=== PATIENT | female | born 1965 | race American Indian/Alaskan Native ===

== ENCOUNTER 2017-07-09 06:44 | Day surgery (SDC) | payer OTHER ==
[2017-07-09] MEDS ORDERED: Lactated Ringers 1,000 ML IV SCH (06:45)
--- NOTE | 2017-07-09 07:58 | PREOP ---
ADMISSION DATE: 07/09/2017 CHIEF COMPLAINT: Need for colon cancer screening. HISTORY OF PRESENT ILLNESS: This is a 52-year-old female referred for a followup colonoscopy. Last one was performed five years ago and was negative. She has a family history of colon cancer with her mother being diagnosed with the disease before the age of 55. She currently reports no complaints. MEDICATIONS: 1. Naprosyn 1 tablet 500 mg as needed q.12. 2. Fioricet 5/325/40 mg tablets one on the onset of severe headaches, may repeat every 6 hours as needed. 3. Flexeril 1 tablet every 6 hours as needed for muscle spasm. 4. Hydrochlorothiazide 25 mg half a tablet by mouth one time a day. 5. Zocor 20 mg one tablet by mouth one time a day. 6. Micardis 40 mg 1 time a day. ALLERGIES: She has no known drug allergies. PAST MEDICAL HISTORY: Significant for breast mass, elevated cholesterol, history of headache, and hypertension. PAST SURGICAL HISTORY: Significant for breast lumpectomy with needle localization, cholecystectomy, colonoscopy, shoulder surgery, and tubal ligation. FAMILY HISTORY: Significant for diabetes, thyroid disease, colorectal cancer, heart disease and hypertension. The patient is . She smokes every day. Has an occasional drink. REVIEW OF SYSTEMS: CONSTITUTIONAL: Negative. HEENT: Negative. HEART: Negative. LUNGS: Negative. GASTROINTESTINAL: Negative. PHYSICAL EXAMINATION: VITAL SIGNS: Reviewed. She is afebrile and vital signs are stable. HEENT: Grossly within normal limits. LUNGS: Clear to auscultation. HEART: Had a regular rate and rhythm. ABDOMEN: Soft, nontender. ASSESSMENT: Family history of colon cancer below the age of 55. Need for followup colonoscopy. PLAN: Colonoscope. Procedure and risks explained to the patient to include bleeding, perforation, and infection. The patient expresses understanding and asked us to proceed. /[id number] /MODL
[2017-07-09] MEDS ORDERED: Midazolam 1 MG/ML 2 ML SDV IV ONE (08:00)
[2017-07-09] MEDS ORDERED: Propofol 200 MG/20 ML SDV IV ONE (08:00)
--- NOTE | 2017-07-09 08:24 | PCM.OPNOTE ---
- General Post-Op/Procedure Note Date of Surgery/Procedure: 07/09/17 Operative Procedure(s): c scope with bx Findings: sigmoid colon polyp Pre Op Diagnosis: family hx of colon cancer mother age < 55 Post-Op Diagnosis: sigmoid colon polyp Anesthesia Technique: MAC Primary Surgeon: Polo Ernst Anesthesia Provider: Liv Verduzco Pathology: sigmoid colon polyp Complications: None Condition: Good Free Text/Narrative:: see dictation
[2017-07-09 09:20] VITALS: BP 116/78
--- NOTE | 2017-07-09 09:42 | OR ---
DATE OF OPERATION: 07/09/2017 SURGEON: Polo Ernst MD PROCEDURE PERFORMED: Colonoscopy with cold forceps biopsy. PREOPERATIVE DIAGNOSIS: Family history of colon cancer in a first-degree relative less than the age of 55. POSTOPERATIVE DIAGNOSIS: Sigmoid polyp. INDICATIONS FOR PROCEDURE: This is a 52-year-old female who presents for a followup colonoscopy. Last one was five years ago and was negative. She was offered and accepted the same. DESCRIPTION OF OPERATION: After an excellent IV sedation was administered, digital rectal exam was performed. No marked abnormality was noted. The flexible colonoscope was inserted and advanced to the cecum without difficulty. The prep was excellent. The following findings were noted. Ascending colon, unremarkable. Transverse colon, unremarkable. Descending colon, unremarkable. Sigmoid, questionable polypoid lesion. Biopsied with cold biopsy forceps and sent for permanent. Rectum was unremarkable. Colon was deflated. Scope was removed. The patient tolerated the procedure well, taken to recovery room in good condition. Results by letter and followup scope on the basis of these pathologic findings. /[id number] /MODL
== END 2017-07-09 09:15 | disposition home or self-care (01) ==
LOC: FB.SDS 06:44
PROVIDERS: ATTEND Surgery
DX: Z12.11 Encounter for screening for malignant neoplasm of colon (principal); K63.5 Polyp of colon; I10 Essential (primary) hypertension; E78.00 Pure hypercholesterolemia, unspecified; Z80.0 Family history of malignant neoplasm of digestive organs; Z79.899 Other long term (current) drug therapy
CPT/HCPCS: 45380; 81025; 88305; J2250; J2704; J7120

== ENCOUNTER 2020-02-01 01:44 | Emergency (ER) | payer OTHER ==
[2020-02-01] MEDS ORDERED: Cyclobenzaprine 10 MG Tab PO ONE (02:07)
[2020-02-01] MEDS ORDERED: Ketorolac 60 MG/2 ML SDV IM ONE (02:07)
--- NOTE | 2020-02-01 02:30 | EDM.PDOC ---
ED HPI GENERAL MEDICAL PROBLEM - General Stated Complaint: BACK PAIN Time Seen by Provider: 02/01/20 02:15 Source of Information: Reports: Patient History Limitations: Reports: No Limitations - History of Present Illness INITIAL COMMENTS - FREE TEXT/NARRATIVE: Patient presented to the ED because of 3 day history of rt flank pain. The pain is sharp 9/10, worse with movements. there is no abdominal pain,nausea,vomiting or diarrhea. There is no fever,chills,cough or cold symptoms. right flank Pain Score (Numeric/FACES): 8 - Related Data Allergies Allergy/AdvReac Type Severity Reaction Status Date / Time No Known Allergies Allergy Verified 07/09/17 07:15 Home Meds: Home Meds Acetaminophen/Butalbital/Caff [Fioricet 325-50-40 MG] 1 tab PO Q6H PRN 07/06/17 [History] Cyclobenzaprine [Flexeril] 10 mg PO Q6H PRN 07/06/17 [History] Naproxen [Naprosyn] 500 mg PO Q12HR PRN 07/06/17 [History] Simvastatin [Zocor] 20 mg PO BEDTIME 07/06/17 [History] Telmisartan [Micardis] 40 mg PO DAILY 07/06/17 [History] hydroCHLOROthiazide [Hydrochlorothiazide] 12.5 mg PO DAILY 07/06/17 [History] Past Medical History HEENT History: Reports: None Cardiovascular History: Reports: High Cholesterol, Hypertension Respiratory History: Reports: None Genitourinary History: Reports: None METAL STAMPER History: Reports: None Musculoskeletal History: Reports: Other (See Below) Other Musculoskeletal History: LEFT SHOULDER PAIN Neurological History: Reports: Headaches, Chronic, Migraines Psychiatric History: Reports: Addiction Endocrine/Metabolic History: Reports: None Hematologic History: Reports: None Immunologic History: Reports: None Dermatologic History: Reports: None - Past Surgical History Head Surgeries/Procedures: Reports: None HEENT Surgical History: Reports: None Cardiovascular Surgical History: Reports: None Respiratory Surgical History: Reports: None GI Surgical History: Reports: Cholecystectomy, Colonoscopy Female Surgical History: Reports: Tubal Ligation Endocrine Surgical History: Reports: None Neurological Surgical History: Reports: None Musculoskeletal Surgical History: Reports: Shoulder Surgery Oncologic Surgical History: Reports: Other (See Below) Other Oncologic Surgeries/Procedures: RIGHT BREAST LUMPECTOMY Dermatological Surgical History: Reports: None Social & Family History - Caffeine Use Caffeine Use: Reports: Coffee, Soda ED ROS GENERAL - Review of Systems Review Of Systems: See Below Constitutional: Reports: No Symptoms HEENT: Reports: No Symptoms Respiratory: Reports: No Symptoms Cardiovascular: Reports: No Symptoms Endocrine: Reports: No Symptoms GI/Abdominal: Reports: No Symptoms : Reports: Flank Pain Musculoskeletal: Reports: No Symptoms Skin: Reports: No Symptoms ED EXAM, GI/ABD - Physical Exam Exam: See Below Exam Limited By: No Limitations General Appearance: Alert, No Apparent Distress Ears: Normal External Exam, Normal Canal Nose: Normal Inspection, Normal Mucosa Throat/Mouth: Normal Inspection, Normal Lips, Normal Teeth Head: Atraumatic, Normocephalic Neck: Normal Inspection, Supple, Non-Tender Respiratory/Chest: No Respiratory Distress, Lungs Clear, Normal Breath Sounds Cardiovascular: Normal Peripheral Pulses, Regular Rate, Rhythm, No Edema, No Gallop GI/Abdominal Exam: Normal Bowel Sounds, Soft, Non-Tender, No Organomegaly Back Exam: Muscle Spasm Course - Vital Signs Text/Narrative:: Labs/Abd-pelvis CT result was discussed with patient Toradol 60 mg IM Flexeril 10 mg PO x1 Last Recorded V/S: Last Vital Signs Temp 36.6 C 02/01/20 01:44 Pulse 101 H 02/01/20 01:44 Resp 17 02/01/20 01:44 BP 120/88 02/01/20 01:44 Pulse Ox 99 02/01/20 01:44 - Orders/Labs/Meds Orders: Active Orders 24 hr Category Date Time Status Abdomen wo Cont [CT] Stat Exams 02/01/20 02:05 Taken Labs: Laboratory Tests 02/01/20 02/01/20 02/01/20 Range/Units 02:15 02:15 02:48 WBC 7.5 (4.5-12.0) X10-3/uL RBC 3.85 (3.23-5.20) x10(6)uL Hgb 12.3 (11.5-15.5) g/dL Hct 35.7 (30.0-51.3) % MCV 92.5 (80-96) fL MCH 31.9 (27.7-33.6) pg MCHC 34.5 (32.2-35.4) g/dL RDW 12.0 (11.5-15.5) % Plt Count 449 H (125-369) X10(3)uL MPV 6.3 L (7.4-10.4) fL Neut % (Auto) 71.1 (46-82) % Lymph % (Auto) 22.1 (13-37) % [place] % (Auto) 4.3 (4-12) % Eos % (Auto) 1 (1.0-5.0) % Baso % (Auto) 1 (0-2) % Neut # (Auto) 5.3 (1.6-8.3) # Lymph # (Auto) 1.7 (0.6-5.0) # [place] # (Auto) 0.3 (0.0-1.3) # Eos # (Auto) 0.1 (0.0-0.8) # Baso # (Auto) 0.1 (0.0-0.2) # Sodium 132 L (135-145) mmol/L Potassium 3.6 (3.5-5.3) mmol/L Chloride 96 L (100-110) mmol/L Carbon Dioxide 25 (21-32) mmol/L BUN 9 (7-18) mg/dL Creatinine 0.7 (0.55-1.02) mg/dL Est Cr Clr Drug Dosing TNP Estimated GFR (MDRD) > 60 (>60) BUN/Creatinine Ratio 12.9 (9-20) Glucose 117 H (80-116) mg/dL Calcium 8.6 (8.6-10.2) mg/dL Urine Color Yellow (YELLOW) Urine Appearance Slightly cloudy (CLEAR) Urine pH 5.0 (5.0-6.5) Ur Specific [place] 1.005 L (1.010-1.025) Urine Protein Negative (NEGATIVE) mg/dL Urine Glucose (UA) Normal (NORMAL) mg/dL Urine Ketones Negative (NEGATIVE) mg/dL Urine Occult Blood Trace (NEGATIVE) Urine Nitrite Negative (NEGATIVE) Urine Bilirubin Negative (NEGATIVE) Urine Urobilinogen Normal (NEGATIVE) mg/dL Ur Leukocyte Esterase Large H (NEGATIVE) Urine RBC 5-10 H (0-5) Urine WBC 5-10 H (0-5) Ur Squamous Epith Cells Few H (NS,R,O) Urine Bacteria Few H (NS) Urine Trichomonas Present H (NS) Meds: Medications Discontinued Medications Generic Name Dose Route Start Last Admin Trade Name Tabitha PRN Reason Stop Dose Admin Cyclobenzaprine HCl 10 mg 02/01/20 02:07 02/01/20 02:44 Flexeril PO 02/01/20 02:08 10 mg ONETIME ONE Administration Ketorolac Tromethamine 60 mg 02/01/20 02:07 02/01/20 02:44 Toradol IM 02/01/20 02:08 60 mg ONETIME ONE Administration Departure - Departure Time of Disposition: 04:15 Disposition: Home, Self-Care 01 Condition: Good Clinical Impression: Nephrolithiasis, Pulmonary nodule - Discharge Information Instructions: Pulmonary Nodule, [id number], Kidney Stones, [id number] Referrals: PCP,None [Primary Care Provider] - Additional Instructions: Please read discharge instructions on kidney stones and pulmonary nodules Increase oral fluids Take ibuprofen 800 mg with tylenol 1000 mg every 8 hours as needed for pain Follow up with your doctor with regards to your pulmonary nodule Sepsis Event Note (ED) - Focused Exam Vital Signs: Vital Signs Temp Pulse Resp BP Pulse Ox 02/01/20 01:44 36.6 C 101 H 17 120/88 99 - My Orders Last 24 Hours: My Active Orders 02/01/20 02:05 Abdomen wo Cont [CT] Stat - Assessment/Plan Last 24 Hours: My Active Orders 02/01/20 02:05 Abdomen wo Cont [CT] Stat
[2020-02-01 05:40] VITALS: BP 112/75; PULSE 97
== END 2020-02-01 04:18 | disposition home or self-care (01) ==
LOC: FB.ED 01:44
DX: N20.0 Calculus of kidney (principal); R91.1 Solitary pulmonary nodule; I10 Essential (primary) hypertension; E78.00 Pure hypercholesterolemia, unspecified
CPT/HCPCS: 36415; 74150; 80048; 81001; 85025; 96372; 99284; A9270; J1885; 99283

== ENCOUNTER 2020-02-21 13:31 | Emergency (ER) | payer OTHER ==
[2020-02-21] MEDS ORDERED: Nitroglycerin 0.4 MG Tab.SL SL PRN (13:57)
[2020-02-21] MEDS ORDERED: Aspirin 81 MG Tab.Chew PO ONE (13:57)
[2020-02-21] MEDS ORDERED: Sodium Chloride 0.9% 1,000 ML IV SCH ×2 (14:00→17:30)
[2020-02-21] MEDS ORDERED: Morphine 2 MG/ML SYRINGE IVPUSH ONE ×2 (14:04→15:46)
[2020-02-21] MEDS ORDERED: Morphine 2 MG/ML SYRINGE ONE (14:06)
[2020-02-21 14:13] VITALS: PULSE 120
[2020-02-21] MEDS ORDERED: Alum Hydroxide/Mag Hydroxide 15 ML, Lidocaine 2% 15 ML PO ONE ×2 (14:15)
[2020-02-21 14:21] VITALS: BP 105/70
[2020-02-21] MEDS ORDERED: fentaNYL 100 MCG/2 ML SDV ONE (14:45)
[2020-02-21] MEDS ORDERED: fentaNYL 100 MCG/2 ML SDV IVPUSH ONE ×2 (15:03→15:05)
[2020-02-21] MEDS ORDERED: Sodium Chloride 0.9% 1,000 ML IV ONE (15:42)
--- NOTE | 2020-02-21 17:35 | EDM.PDOC ---
ED HPI GENERAL MEDICAL PROBLEM - General Chief Complaint: Cardiovascular Problem Stated Complaint: CHEST PAIN Time Seen by Provider: 02/21/20 13:40 Source of Information: Reports: Patient History Limitations: Reports: No Limitations - History of Present Illness INITIAL COMMENTS - FREE TEXT/NARRATIVE: pt presents with retrosternal / epigastric pain since 11 am was watching TV when this started in the retrosternum then she went to shower and pain got worse , felt weak and diaphoretic , on arrival in ER it had improved but was still present Smoker Father had AR at 40's in 60's from [place] , had CVA pt has PVD , had stent placed in left leg about one month ago for PVD pt has hyperlipidemia Onset: Today Onset Date: 02/21/20 Duration: Hour(s): (2), Getting Worse Location: Reports: Chest Quality: Reports: Dull Severity: Moderate Improves with: Reports: None Worsens with: Reports: None Context: Reports: Activity (took a shower and chest pain got worse) Associated Symptoms: Reports: Chest Pain, Diaphoresis, Malaise, Weakness. Denies: Shortness of Breath Epigastric Pain Score (Numeric/FACES): 7 Left Groin Pain Score (Numeric/FACES): 9 - Related Data Allergies Allergy/AdvReac Type Severity Reaction Status Date / Time No Known Allergies Allergy Verified 02/21/20 13:49 Home Meds: Home Meds Simvastatin [Zocor] 20 mg PO BEDTIME 07/06/17 [History] Telmisartan [Micardis] 20 mg PO DAILY 07/06/17 [History] hydroCHLOROthiazide [Hydrochlorothiazide] 12.5 mg PO DAILY 07/06/17 [History] Ibuprofen 800 mg PO Q12H PRN 02/21/20 [History] Past Medical History HEENT History: Reports: None Cardiovascular History: Reports: High Cholesterol, Hypertension Respiratory History: Reports: None Genitourinary History: Reports: None ADOPTION MANAGER History: Reports: None Musculoskeletal History: Reports: Other (See Below) Other Musculoskeletal History: LEFT SHOULDER PAIN Neurological History: Reports: Headaches, Chronic, Migraines Psychiatric History: Reports: Addiction Endocrine/Metabolic History: Reports: None Hematologic History: Reports: None Immunologic History: Reports: None Dermatologic History: Reports: None - Past Surgical History Head Surgeries/Procedures: Reports: None HEENT Surgical History: Reports: None Cardiovascular Surgical History: Reports: None Respiratory Surgical History: Reports: None GI Surgical History: Reports: Cholecystectomy, Colonoscopy Female Surgical History: Reports: Tubal Ligation Endocrine Surgical History: Reports: None Neurological Surgical History: Reports: None Musculoskeletal Surgical History: Reports: Shoulder Surgery Oncologic Surgical History: Reports: Other (See Below) Other Oncologic Surgeries/Procedures: RIGHT BREAST LUMPECTOMY Dermatological Surgical History: Reports: None Social & Family History - Tobacco Use Tobacco Use Status *Q: Former Tobacco User Used Tobacco, but Quit: Yes Month/Year Tobacco Last Used: 2019 - Caffeine Use Caffeine Use: Reports: Soda - Recreational Drug Use Recreational Drug Use: No ED ROS GENERAL - Review of Systems Review Of Systems: See Below Constitutional: Reports: Fatigue. Denies: Fever, Chills, Malaise, Weakness HEENT: Reports: No Symptoms Respiratory: Reports: No Symptoms. Denies: Shortness of Breath, Wheezing, Pleuritic Chest Pain Cardiovascular: Reports: Chest Pain Endocrine: Reports: No Symptoms GI/Abdominal: Reports: No Symptoms Musculoskeletal: Reports: No Symptoms Skin: Reports: No Symptoms Neurological: Reports: No Symptoms ED EXAM, GENERAL - Physical Exam Exam: See Below Exam Limited By: No Limitations General Appearance: Alert, WD/WN, No Apparent Distress Eye Exam: Bilateral Eye: EOMI Ears: Normal External Exam Nose: Normal Inspection, Normal Mucosa Throat/Mouth: Normal Inspection Head: Atraumatic, Normocephalic Neck: Supple, Non-Tender Respiratory/Chest: No Respiratory Distress, Lungs Clear Cardiovascular: Normal Peripheral Pulses, Regular Rate, Rhythm GI/Abdominal: Soft, Non-Tender Back Exam: Full Range of Motion Extremities: Normal Inspection, Normal Range of Motion Neurological: Alert, Oriented, CN II-XII Intact Psychiatric: Normal Affect Skin Exam: Warm, Dry Course - Vital Signs Last Recorded V/S: Last Vital Signs Temp 36.4 C 02/21/20 18:32 Pulse 120 H 02/21/20 13:32 Resp 28 H 02/21/20 13:32 BP 105/70 02/21/20 14:20 Pulse Ox 100 02/21/20 13:32 - Orders/Labs/Meds Orders: Active Orders 24 hr Category Date Time Status Chest 1V Frontal [CR] Stat Exams 02/21/20 13:58 Taken EKG 12 Lead [EK] Routine Ther 02/21/20 13:56 Ordered EKG 12 Lead [EK] Routine Ther 02/21/20 15:16 Ordered EKG 12 Lead [EK] Routine Ther 02/21/20 16:55 Ordered Labs: Laboratory Tests 02/21/20 02/21/20 02/21/20 Range/Units 13:55 13:55 13:55 WBC 9.0 (4.5-12.0) X10-3/uL RBC 4.16 (3.23-5.20) x10(6)uL Hgb 13.1 (11.5-15.5) g/dL Hct 37.8 (30.0-51.3) % MCV 90.9 (80-96) fL MCH 31.6 (27.7-33.6) pg MCHC 34.8 (32.2-35.4) g/dL RDW 11.7 (11.5-15.5) % Plt Count 450 H (125-369) X10(3)uL PT (9.0-11.1) sec INR (1.00-1.24) Sodium 127 L (135-145) mmol/L Potassium 3.9 (3.5-5.3) mmol/L Chloride 91 L D (100-110) mmol/L Carbon Dioxide 23 (21-32) mmol/L BUN 11 (7-18) mg/dL Creatinine 0.7 (0.55-1.02) mg/dL Est Cr Clr Drug Dosing 84.59 mL/min Estimated GFR (MDRD) > 60 (>60) BUN/Creatinine Ratio 15.7 (9-20) Glucose 146 H (80-116) mg/dL Calcium 9.2 (8.6-10.2) mg/dL Magnesium (1.8-2.5) mg/dL Troponin I 16.8 (4.0-60.3) pg/mL NT-Pro-B Natriuret Pep 460 H (<=125) pg/mL 02/21/20 02/21/20 02/21/20 Range/Units 13:55 14:52 16:55 WBC (4.5-12.0) X10-3/uL RBC (3.23-5.20) x10(6)uL Hgb (11.5-15.5) g/dL Hct (30.0-51.3) % MCV (80-96) fL MCH (27.7-33.6) pg MCHC (32.2-35.4) g/dL RDW (11.5-15.5) % Plt Count (125-369) X10(3)uL PT 10.9 (9.0-11.1) sec INR 1.01 (1.00-1.24) Sodium (135-145) mmol/L Potassium (3.5-5.3) mmol/L Chloride (100-110) mmol/L Carbon Dioxide (21-32) mmol/L BUN (7-18) mg/dL Creatinine (0.55-1.02) mg/dL Est Cr Clr Drug Dosing mL/min Estimated GFR (MDRD) (>60) BUN/Creatinine Ratio (9-20) Glucose (80-116) mg/dL Calcium (8.6-10.2) mg/dL Magnesium 1.7 L (1.8-2.5) mg/dL Troponin I 72.7 H* (4.0-60.3) pg/mL NT-Pro-B Natriuret Pep (<=125) pg/mL 02/21/20 Range/Units 16:55 WBC (4.5-12.0) X10-3/uL RBC (3.23-5.20) x10(6)uL Hgb (11.5-15.5) g/dL Hct (30.0-51.3) % MCV (80-96) fL MCH (27.7-33.6) pg MCHC (32.2-35.4) g/dL RDW (11.5-15.5) % Plt Count (125-369) X10(3)uL PT (9.0-11.1) sec INR (1.00-1.24) Sodium 131 L (135-145) mmol/L Potassium (3.5-5.3) mmol/L Chloride (100-110) mmol/L Carbon Dioxide (21-32) mmol/L BUN (7-18) mg/dL Creatinine (0.55-1.02) mg/dL Est Cr Clr Drug Dosing mL/min Estimated GFR (MDRD) (>60) BUN/Creatinine Ratio (9-20) Glucose (80-116) mg/dL Calcium (8.6-10.2) mg/dL Magnesium (1.8-2.5) mg/dL Troponin I (4.0-60.3) pg/mL NT-Pro-B Natriuret Pep (<=125) pg/mL Meds: Medications Discontinued Medications Generic Name Dose Route Start Last Admin Trade Name Tabitha PRN Reason Stop Dose Admin Aspirin 324 mg 02/21/20 13:57 02/21/20 13:50 Aspirin PO 02/21/20 13:58 324 mg ONETIME ONE Administration Al Hydroxide/Mg Hydroxide 15 0 ml 02/21/20 14:15 02/21/20 14:19 ml/ Lidocaine HCl 15 ml PO 02/21/20 14:16 30 ml ONETIME ONE Administration Fentanyl Confirm 02/21/20 14:45 02/21/20 15:00 Sublimaze Administered 02/21/20 14:46 Not Given Dose 100 mcg .ROUTE .STK-MED ONE Fentanyl 25 mcg 02/21/20 15:05 02/21/20 14:50 Sublimaze IVPUSH 02/21/20 15:06 25 mcg ONETIME ONE Administration Heparin Sodium (Porcine) 5,000 units 02/21/20 17:39 02/21/20 17:51 Heparin Sodium IVPUSH 02/21/20 17:40 5,000 units ONETIME ONE Administration Sodium Chloride 1,000 mls @ 999 mls/hr 02/21/20 14:00 02/21/20 14:04 Normal Saline IV 999 mls/hr ASDIRECTED ASHWINI Administration Sodium Chloride 1,000 mls @ 999 mls/hr 02/21/20 15:42 02/21/20 15:43 Normal Saline IV 02/21/20 16:42 30 mls/hr .BOLUS ONE Infusion Sodium Chloride 1,000 mls @ 125 mls/hr 02/21/20 17:30 02/21/20 17:27 Normal Saline IV 125 mls/hr ASDIRECTED ASHWINI Administration Heparin Sodium/Sodium Chloride 500 mls @ 20 mls/hr 02/21/20 17:45 02/21/20 17:58 Heparin 25,000 Units In 1/2 Ns 500 Ml IV 20 mls/hr ASDIRECTED ASHWINI Administration Magnesium Oxide 800 mg 02/21/20 17:43 02/21/20 17:51 Magnesium Oxide PO 02/21/20 17:44 800 mg ONETIME ONE Administration Morphine Sulfate 2 mg 02/21/20 14:04 02/21/20 14:06 Morphine IVPUSH 02/21/20 14:05 2 mg ONETIME ONE Administration Morphine Sulfate Confirm 02/21/20 14:06 02/21/20 14:16 Morphine Administered 02/21/20 14:07 Not Given Dose 2 mg .ROUTE .STK-MED ONE Morphine Sulfate 2 mg 02/21/20 15:46 02/21/20 18:04 Morphine IVPUSH 02/21/20 15:47 Not Given ONETIME ONE Nitroglycerin 0.4 mg 02/21/20 13:57 02/21/20 14:20 Nitrostat SL 0.4 mg Q5M PRN Administration Chest Pain - Re-Assessments/Exams Free Text/Narrative Re-Assessment/Exam: 02/21/20 17:24 pt was kept in ER and observed had labs done: troponin , EKG and Cxray EKG: initially was suggestive of ST elevation EKG was faxed to [facility] and the Nailhead Puncher reviewed it : stated she did not thin it was an AR ( troponin at the time was negative) Pt was still given Morphine and the NTG , her pain resolved Pt then developed sever pain in the left leg ( after Nitro was given ) . stated started from groin to the foot . ( pt has 3 stents in the left leg from PVD) pain has developed after she got the stents in , She stated this was the 3rd or 4th time she had the pain in the leg pain did gradually resolve after being given dose of Morphin and fentanyl I did call to [facility] and spoke to the interventional radiologist and he recommended getting TRACY done ( no tech available here) So I called to [facility] ans requested whether pt could get TRACY done there . Tech was agreeable ,. But pt had to wait to get repeat troponin done to rule out possible CAD Now Troponin is elevated , EKG shows changed in the standard leads , no longer has the ST elevation that was noted earlier pt being transfered to [facility] 02/21/20 18:26 Departure - Departure Time of Disposition: 18:30 Disposition: DC/Tfer to Acute Hospital 02 Condition: Fair Clinical Impression: Non-STEMI (non-ST elevated myocardial infarction), Chest pain due to CAD - Discharge Information *PRESCRIPTION DRUG MONITORING PROGRAM REVIEWED*: Not Applicable *COPY OF PRESCRIPTION DRUG MONITORING REPORT IN PATIENT MAIRA: Not Applicable Referrals: PCP,None [Primary Care Provider] - Forms: ED Department Discharge, ED Department Discharge Sepsis Event Note (ED) - Evaluation Sepsis Screening Result: No Definite Risk - Focused Exam Vital Signs: Vital Signs Temp Pulse Resp BP BP Pulse Ox 02/21/20 18:32 36.4 C 02/21/20 14:20 105/70 02/21/20 13:32 36.4 C 120 H 28 H 107/75 100 - My Orders Last 24 Hours: My Active Orders 02/21/20 13:56 EKG 12 Lead [EK] Routine 02/21/20 13:58 Chest 1V Frontal [CR] Stat 02/21/20 15:16 EKG 12 Lead [EK] Routine 02/21/20 16:55 EKG 12 Lead [EK] Routine - Assessment/Plan Last 24 Hours: My Active Orders 02/21/20 13:56 EKG 12 Lead [EK] Routine 02/21/20 13:58 Chest 1V Frontal [CR] Stat 02/21/20 15:16 EKG 12 Lead [EK] Routine 02/21/20 16:55 EKG 12 Lead [EK] Routine
[2020-02-21] MEDS ORDERED: Heparin Sodium 5,000 Units/ML Vial IVPUSH ONE (17:39)
[2020-02-21] MEDS ORDERED: Magnesium Oxide 400 MG Tab PO ONE (17:43)
[2020-02-21] MEDS ORDERED: Heparin Sodium/0.45% NaCl 500 ML IV SCH (17:45)
--- NOTE | 2020-02-23 11:42 | CR ---
INDICATION: Chest pain. CHEST ONE VIEW: An AP portable upright view of the chest was obtained 02/21/20 and revealed the heart to be enlarged. The aorta is tortuous with calcification in the arch. Overlying EKG leads are noted. There is a somewhat nodular appearing infiltrate in the left midlung field with some additional patchy infiltrate, findings may be on the basis of pneumonia, although other etiologies such as neoplasia would also be a consideration and followup studies are therefore recommended. Markings are somewhat heavy at the right lung base additionally which could represent some minimal patchy bronchopneumonia in that area. IMPRESSION: 1. ASHD with cardiomegaly is suggested. 2. Infiltrates noted in the right lung base and left midlung field with a somewhat nodular appearance in one area of the left lung lower middle area. Followup to clearing is recommended since neoplastic process is difficult to exclude with that appearance. MTDD
== END 2020-02-21 18:32 ==
LOC: FB.ED 13:31
DX: I21.4 Non-ST elevation (NSTEMI) myocardial infarction (principal); I25.10 Atherosclerotic heart disease of native coronary artery without angina pectoris; I10 Essential (primary) hypertension; E78.00 Pure hypercholesterolemia, unspecified; Z90.49 Acquired absence of other specified parts of digestive tract; Z98.51 Tubal ligation status; Z87.891 Personal history of nicotine dependence; Z79.899 Other long term (current) drug therapy
CPT/HCPCS: 36410; 36415; 71045; 80048; 83735; 83880; 84295; 84484; 85027; 85610; 93005; 96365; 96375; 99285; A9270; J1644; J3010; J7030; 93010; J2270

== ENCOUNTER 2020-03-20 13:00 | Emergency (ER) | payer OTHER ==
[2020-03-20] MEDS: Sodium Chloride 0.9% 10 ML Syringe FLUSH PRN (15:00)
--- NOTE | 2020-03-20 15:02 | EDM.PDOC ---
ED HPI GENERAL MEDICAL PROBLEM - General Chief Complaint: Genitourinary Problem Stated Complaint: BLOOD IN URINE Time Seen by Provider: 03/20/20 14:00 Source of Information: Reports: Patient History Limitations: Reports: No Limitations - History of Present Illness INITIAL COMMENTS - FREE TEXT/NARRATIVE: pt noted blood in her urine since yesterday , this am got worse and this af ternoon got worse has back pain and generalized bone pain due to bone cancer has radiation treatment denies any fever at this ray Onset: Gradual Onset Date: 03/19/20 Duration: Day(s): (2), Getting Worse Location: Reports: Back Quality: Reports: Other Severity: Mild Improves with: Reports: None Worsens with: Reports: None Context: Reports: Other Associated Symptoms: Reports: Loss of Appetite, Weakness Treatments INDUSTRIAL NURSE: Reports: Other (see below) - Related Data Allergies Allergy/AdvReac Type Severity Reaction Status Date / Time No Known Allergies Allergy Verified 03/20/20 15:26 Home Meds: Home Meds Simvastatin [Zocor] 20 mg PO BEDTIME 07/06/17 [History] Telmisartan [Micardis] 20 mg PO DAILY 07/06/17 [History] hydroCHLOROthiazide [Hydrochlorothiazide] 12.5 mg PO DAILY 07/06/17 [History] Ibuprofen 800 mg PO Q12H PRN 02/21/20 [History] Ciprofloxacin HCl [Cipro] 500 mg PO BID #20 tablet 03/20/20 [Rx] Past Medical History HEENT History: Reports: None Cardiovascular History: Reports: High Cholesterol, Hypertension, Stents Respiratory History: Reports: None Genitourinary History: Reports: None TESTER ARMATURE OR FIELDS History: Reports: None Musculoskeletal History: Reports: Other (See Below) Other Musculoskeletal History: LEFT SHOULDER PAIN Neurological History: Reports: Headaches, Chronic, Migraines Psychiatric History: Reports: Addiction Endocrine/Metabolic History: Reports: None Hematologic History: Reports: None Immunologic History: Reports: None Oncologic (Cancer) History: Reports: Bone Dermatologic History: Reports: None - Past Surgical History Head Surgeries/Procedures: Reports: None HEENT Surgical History: Reports: None Cardiovascular Surgical History: Reports: None Respiratory Surgical History: Reports: None GI Surgical History: Reports: Cholecystectomy, Colonoscopy Female Surgical History: Reports: Tubal Ligation Endocrine Surgical History: Reports: None Neurological Surgical History: Reports: None Musculoskeletal Surgical History: Reports: Shoulder Surgery Oncologic Surgical History: Reports: Other (See Below) Other Oncologic Surgeries/Procedures: RIGHT BREAST LUMPECTOMY Dermatological Surgical History: Reports: None Social & Family History - Family History Family Medical History: No Pertinent Family History - Tobacco Use Tobacco Use Status *Q: Unknown Ever Used Tobacco - Caffeine Use Caffeine Use: Reports: Coffee, Soda - Recreational Drug Use Recreational Drug Use: No ED ROS GENERAL - Review of Systems Review Of Systems: See Below Constitutional: Reports: Malaise, Weakness, Fatigue, Decreased Appetite. Denies: Fever, Chills HEENT: Reports: No Symptoms Respiratory: Reports: No Symptoms Cardiovascular: Reports: No Symptoms Endocrine: Reports: No Symptoms GI/Abdominal: Reports: No Symptoms : Reports: Flank Pain, Frequency, Hematuria, Incontinence, Urgency Musculoskeletal: Reports: Back Pain, Joint Pain Skin: Reports: No Symptoms Neurological: Reports: No Symptoms Psychiatric: Reports: No Symptoms Hematologic/Lymphatic: Reports: No Symptoms Immunologic: Reports: No Symptoms ED EXAM, RENAL/ - Physical Exam Exam: See Below Exam Limited By: No Limitations General Appearance: Alert, WD/WN, Lethargic, Mild Distress Eye Exam: Bilateral Eye: EOMI Ears: Normal External Exam Nose: Normal Inspection Throat/Mouth: Normal Inspection, Normal Oropharynx Head: Atraumatic Neck: Normal Inspection Respiratory/Chest: Lungs Clear Cardiovascular: Regular Rate, Rhythm GI/Abdominal: Normal Bowel Sounds, Soft, Non-Tender Back Exam: Decreased Range of Motion, Muscle Spasm, Vertebral Tenderness Extremities: Non-Tender, Pedal Edema Neurological: Alert, Oriented, CN II-XII Intact Psychiatric: Normal Affect Skin Exam: Warm, Dry, Intact Course - Vital Signs Last Recorded V/S: Last Vital Signs Temp 36.6 C 03/20/20 16:24 Pulse 107 H 03/20/20 16:24 Resp 16 03/20/20 16:24 BP 107/32 L 03/20/20 16:24 Pulse Ox 99 03/20/20 16:24 - Orders/Labs/Meds Orders: Active Orders 24 hr Category Date Time Status Sodium Chloride 0.9% [Saline Flush] Med 03/20/20 15:00 Active 10 ml FLUSH ASDIRECTED PRN Medication Orders Sodium Chloride (Saline Flush) 10 ml FLUSH ASDIRECTED PRN PRN Reason: IV Use Last Admin: 03/20/20 15:00 Dose: 10 ml Documented by: TRISTAN Labs: Laboratory Tests 03/20/20 Range/Units 13:15 Urine Color Red (YELLOW) Urine Appearance Cloudy (CLEAR) Urine pH 6.5 (5.0-6.5) Ur Specific [place] 1.010 (1.010-1.025) Urine Protein 500 H (NEGATIVE) mg/dL Urine Glucose (UA) Normal (NORMAL) mg/dL Urine Ketones Negative (NEGATIVE) mg/dL Urine Occult Blood Large H (NEGATIVE) Urine Nitrite Negative (NEGATIVE) Urine Bilirubin Negative (NEGATIVE) Urine Urobilinogen Normal (NEGATIVE) mg/dL Ur Leukocyte Esterase Large H (NEGATIVE) Urine RBC Packed H (0-5) Urine WBC Packed H (0-5) Meds: Medications Generic Name Dose Route Start Last Admin Trade Name Freq PRN Reason Stop Dose Admin Sodium Chloride 10 ml 03/20/20 15:00 03/20/20 15:00 Saline Flush FLUSH 10 ml ASDIRECTED PRN Administration IV Use Discontinued Medications Generic Name Dose Route Start Last Admin Trade Name Freq PRN Reason Stop Dose Admin Sodium Chloride 500 mls @ 999 mls/hr 03/20/20 14:54 03/20/20 15:05 Normal Saline IV 03/20/20 15:24 999 mls/hr .BOLUS ONE Administration Ciprofloxacin/Dextrose 400 mg/ 200 mls @ 200 mls/hr 03/20/20 15:56 03/20/20 16:01 Premix IV 03/20/20 16:55 200 mls/hr ONETIME ONE Administration - Re-Assessments/Exams Free Text/Narrative Re-Assessment/Exam: 03/20/20 15:05 pt given IVF and iv Ciprofloxacin will go home on oral dosage of Ciprofloxacin Departure - Departure Time of Disposition: 16:20 Disposition: Home, Self-Care 01 Condition: Fair Clinical Impression: UTI (urinary tract infection), uncomplicated - Discharge Information *PRESCRIPTION DRUG MONITORING PROGRAM REVIEWED*: Not Applicable *COPY OF PRESCRIPTION DRUG MONITORING REPORT IN PATIENT MAIRA: Not Applicable Prescriptions: Ciprofloxacin HCl [Cipro] 500 mg PO BID #20 tablet Instructions: Urinary Tract Infection, Adult, [id number] Referrals: Carley Balderas BROACH GRINDER [Primary Care Provider] - Forms: ED Department Discharge Additional Instructions: Increase fluid intake Continue with all other medications Sepsis Event Note (ED) - Evaluation Sepsis Screening Result: No Definite Risk - Focused Exam Vital Signs: Vital Signs Temp Pulse Resp BP Pulse Ox 03/20/20 16:24 36.6 C 107 H 16 107/32 L 99 03/20/20 13:30 36.6 C 118 H 16 92/54 L 98 - My Orders Last 24 Hours: My Active Orders 03/20/20 15:00 Sodium Chloride 0.9% [Saline Flush] 10 ml FLUSH ASDIRECTED PRN - Assessment/Plan Last 24 Hours: My Active Orders 03/20/20 15:00 Sodium Chloride 0.9% [Saline Flush] 10 ml FLUSH ASDIRECTED PRN
[2020-03-20] MEDS: Sodium Chloride 0.9% 500 ML IV ONE (15:05)
[2020-03-20] MEDS: Ciprofloxacin in D5W 400 MG in Premix Bag 1 BAG IV ONE ×2 (16:01)
[2020-03-20 16:25] VITALS: BP 107/32; PULSE 107
== END 2020-03-20 17:10 | disposition home or self-care (01) ==
LOC: FB.ED 13:00
DX: N39.0 Urinary tract infection, site not specified (principal); E78.00 Pure hypercholesterolemia, unspecified; I10 Essential (primary) hypertension; Z79.899 Other long term (current) drug therapy
CPT/HCPCS: 81001; 96365; 99283-25; 99284; J0744; J7040

== ENCOUNTER 2020-04-03 22:43 | Emergency (ER) | payer OTHER ==
[2020-04-03 23:02] VITALS: BP 97/70; PULSE 112
[2020-04-03] MEDS ORDERED: fentaNYL 100 MCG/2 ML SDV IM ONE (23:15)
--- NOTE | 2020-04-03 23:42 | EDM.PDOC ---
ED HPI GENERAL MEDICAL PROBLEM - General Chief Complaint: Upper Extremity Injury/Pain Stated Complaint: ARM PAIN Time Seen by Provider: 04/03/20 22:55 Source of Information: Reports: Patient, Family History Limitations: Reports: No Limitations - History of Present Illness INITIAL COMMENTS - FREE TEXT/NARRATIVE: c/o R shoulder pain pt was in bed, she rolled over to get out of bed and pulled back her bed covers at 7:30p with her R arm and had sudden pain in her R posterior shoulder, she took an oxycodone 2h PIPELINE INTEGRITY ENGINEER that did not seem to help, has pain / now, had not had shoulder pain previously pt in ED 1m ago with NSTEMI, transferred to [facility] where dx'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, scheduled to begin chemo next week here with her son did have rotator cuff repair in past Treatments PIPELINE INTEGRITY ENGINEER: Reports: Cold Therapy Right Shoulder Pain Score (Numeric/FACES): 7 - Related Data Allergies Allergy/AdvReac Type Severity Reaction Status Date / Time No Known Allergies Allergy Verified 04/03/20 22:59 Home Meds: Home Meds Simvastatin [Zocor] 20 mg PO BEDTIME 07/06/17 [History] Telmisartan [Micardis] 20 mg PO DAILY 07/06/17 [History] hydroCHLOROthiazide [Hydrochlorothiazide] 12.5 mg PO DAILY 07/06/17 [History] Ibuprofen 800 mg PO Q12H PRN 02/21/20 [History] Ciprofloxacin HCl [Cipro] 500 mg PO BID #20 tablet 03/20/20 [Rx] Past Medical History HEENT History: Reports: None Cardiovascular History: Reports: High Cholesterol, Hypertension, Stents Respiratory History: Reports: None Genitourinary History: Reports: None SOCIAL WELFARE ADMINISTRATOR History: Reports: None Musculoskeletal History: Reports: Other (See Below) Other Musculoskeletal History: LEFT SHOULDER PAIN Neurological History: Reports: Headaches, Chronic, Migraines Psychiatric History: Reports: Addiction Endocrine/Metabolic History: Reports: None Hematologic History: Reports: None Immunologic History: Reports: None Oncologic (Cancer) History: Reports: Bone, Lung Dermatologic History: Reports: None - Past Surgical History Head Surgeries/Procedures: Reports: None HEENT Surgical History: Reports: None Cardiovascular Surgical History: Reports: None Respiratory Surgical History: Reports: None GI Surgical History: Reports: Cholecystectomy, Colonoscopy Female Surgical History: Reports: Tubal Ligation Endocrine Surgical History: Reports: None Neurological Surgical History: Reports: None Musculoskeletal Surgical History: Reports: Shoulder Surgery Oncologic Surgical History: Reports: Other (See Below) Other Oncologic Surgeries/Procedures: RIGHT BREAST LUMPECTOMY Dermatological Surgical History: Reports: None Social & Family History - Family History Family Medical History: No Pertinent Family History - Tobacco Use Tobacco Use Status *Q: Former Tobacco User Used Tobacco, but Quit: Yes Month/Year Tobacco Last Used: 2019 - Caffeine Use Caffeine Use: Reports: Soda - Recreational Drug Use Recreational Drug Use: No Review of Systems - Review of Systems Review Of Systems: See Below Constitutional: Reports: No Symptoms Eyes: Reports: No Symptoms Ears: Reports: No Symptoms Nose: Reports: No Symptoms Mouth/Throat: Reports: No Symptoms Respiratory: Reports: No Symptoms Cardiovascular: Reports: No Symptoms GI/Abdominal: Reports: No Symptoms Genitourinary: Reports: No Symptoms Musculoskeletal: Reports: Joint Pain Skin: Reports: No Symptoms Neurological: Reports: No Symptoms Psychiatric: Reports: No Symptoms ED EXAM, GENERAL - Physical Exam Exam: See Below Exam Limited By: No Limitations General Appearance: Alert, WD/WN, No Apparent Distress Nose: Normal Inspection Throat/Mouth: Normal Inspection, Normal Lips Head: Atraumatic, Normocephalic Neck: Normal Inspection, Supple, Non-Tender, Full Range of Motion Respiratory/Chest: No Respiratory Distress, Lungs Clear, Normal Breath Sounds Cardiovascular: Regular Rate, Rhythm Back Exam: Normal Inspection, Full Range of Motion Extremities: Other (R shoulder without localized tender, no swell, no ecchymosis, does allow limited ROM, has inc'd discomfort in scapula with inc'd ROM, humerus NT, GH joint NT, no pain referrable to rotator cuff muscles) Neurological: Alert, Oriented, CN II-XII Intact, Normal Cognition, No Motor/Sensory Deficits, Other (very pleasant) Psychiatric: Normal Affect, Normal Mood Skin Exam: Warm, Dry, Intact, Normal Color, No Rash Lymphatic: No Adenopathy Course - Vital Signs Last Recorded V/S: Last Vital Signs Temp 36.4 C 04/03/20 22:45 Pulse 112 H 04/03/20 22:45 Resp 18 04/03/20 22:45 BP 97/70 04/03/20 22:45 Pulse Ox 96 04/03/20 22:45 - Orders/Labs/Meds Orders: Active Orders 24 hr Category Date Time Status Shoulder Comp Rt [CR] Stat Exams 04/03/20 23:15 Taken Upper Extremity wo Cont Rt [CT] Stat Exams 04/03/20 23:49 Taken Meds: Medications Discontinued Medications Generic Name Dose Route Start Last Admin Trade Name Tabitha PRN Reason Stop Dose Admin Fentanyl 50 mcg 04/03/20 23:15 04/03/20 23:19 Sublimaze IM 04/03/20 23:16 50 mcg Q30M ONE Administration - Re-Assessments/Exams Free Text/Narrative Re-Assessment/Exam: 04/03/20 23:54 pt requested to leave after CT and to be called with results, which will be done when radiologist reads them her with her son, they are staying together humerus is intact on plain XR, no dislocation, there does appear to be a lytic lesion of the R scapula, CT obtained for better definition, no definite fx on prelim ED read of plain XRs she got very good pain relief from fentanyl 50 mcg IM 04/04/20 02:45 son Toby called at [phone], CT showed a lytic lesion of inf lat R scapula without associated fx, multiple pul nodules seen, mediastinal enlarged LNs seen, son informed, pt may have strained her shoulder, however cannot exclude a microfracture, may use shoulder as tolerated Departure - Departure Time of Disposition: 00:20 Disposition: Home, Self-Care 01 Condition: Good Clinical Impression: Right shoulder pain - Discharge Information *PRESCRIPTION DRUG MONITORING PROGRAM REVIEWED*: Not Applicable *COPY OF PRESCRIPTION DRUG MONITORING REPORT IN PATIENT MAIRA: Not Applicable Instructions: Shoulder Pain Referrals: Carley Balderas CROSS TIE MAKER [Primary Care Provider] - Forms: ED Department Discharge Additional Instructions: For pain, use oxycodone 1 tab every 4-6 hours as needed. For pain, take acetaminophen 325 mg 2 tabs 4 times a day for 2 days, longer if needed. Use sling for next several days. See your PCP in 2-3 days for further instructions. Return to ED if you are feeling worse. Sepsis Event Note (ED) - Evaluation Sepsis Screening Result: No Definite Risk - Focused Exam Vital Signs: Vital Signs Temp Pulse Resp BP Pulse Ox 04/03/20 22:45 36.4 C 112 H 18 97/70 96 - My Orders Last 24 Hours: My Active Orders 04/03/20 23:15 Shoulder Comp Rt [CR] Stat 04/03/20 23:49 Upper Extremity wo Cont Rt [CT] Stat - Assessment/Plan Last 24 Hours: My Active Orders 04/03/20 23:15 Shoulder Comp Rt [CR] Stat 04/03/20 23:49 Upper Extremity wo Cont Rt [CT] Stat
== END 2020-04-04 00:15 | disposition home or self-care (01) ==
LOC: FB.ED 22:43
DX: M25.511 Pain in right shoulder (principal); E78.00 Pure hypercholesterolemia, unspecified; I10 Essential (primary) hypertension; Z79.899 Other long term (current) drug therapy; Z87.891 Personal history of nicotine dependence
CPT/HCPCS: 73030; 73200; 96372; 99284; J3010; 99283